=== PATIENT | female | born 1995 | race Caucasian/White ===

== ENCOUNTER 2016-08-19 17:20 | Emergency (ER) | payer OTHER ==
[~2016-08-19] VITALS: Ht 152.4 cm; Wt 60.8 kg
[2016-08-19 17:50] VITALS: BP 112/52
--- NOTE | 2016-08-19 20:39 | NUR ---
Patient ambulated to bed 07.
--- NOTE | 2016-08-19 20:50 | NUR ---
21 YEAR OLD FEMALE CAME IN WITH LEFT INGROWN TOENAIL ON BIG TOE FOR 1 1/2 MONTH. DENIES N/V/D. AWAKE, ALERT, ORIENTED. AMBULATORY.
--- NOTE | 2016-08-19 21:38 | NUR ---
Dr. Lopez evaluating patient at bedside.
[2016-08-19] MEDS ORDERED: BACITRACIN OINT 500 UNITS/GM PKT TP ONE (21:51)
--- NOTE | 2016-08-19 21:55 | NUR ---
Tg colin in EDM - 08/19/16 at [email or web address] BELL AT THE BEDSIDE DOING SUTURE.
--- NOTE | 2016-08-19 22:00 | NUR ---
DR. BELL REMOVED THE INGROWN TOENAIL AT BEDSIDE. Addendum: 08/19/16 at 2206 by ADAN DRESSING DONE BY MONA GARCIA AT BEDSIDE.
[2016-08-19 22:15] VITALS: BP 120/79
--- NOTE | 2016-08-19 22:15 | NUR ---
Patient discharged with v/s stable. Written and verbal after care instructions given and explained BY DR. BELL WITH RX KETOCONAZOLE AND NAPROSYN. Patient verbalized understanding. Ambulatory with steady gait. All questions addressed prior to discharge. Advised to follow up with PMD. DISCHARGED BY DR. BELL.
== END 2016-08-19 22:15 | disposition home or self-care (01) ==
LOC: MED 17:20
DX: L60.0 Ingrowing nail (principal); J45.909 Unspecified asthma, uncomplicated; Z91.013 Allergy to seafood
CPT/HCPCS: 11730; 11750; 99284